=== PATIENT | male | born 1995 | race Caucasian/White ===

== ENCOUNTER 2018-04-26 16:25 | Emergency (ER) | payer OTHER ==
[~2018-04-26] VITALS: Ht 175.3 cm; Wt 66.2 kg
[2018-04-26 16:47] VITALS: Ht 175.3 cm; Wt 66.2 kg
[2018-04-26 18:43] VITALS: BP 138/71
== END 2018-04-26 18:43 | disposition home or self-care (01) ==
LOC: ED 16:25
DX: S06.0X0A Concussion without loss of consciousness, initial encounter (principal); V89.2XXA Person injured in unspecified motor-vehicle accident, traffic, initial encounter; Y93.I9 Activity, other involving external motion; Y92.413 State road as the place of occurrence of the external cause; Y99.8 Other external cause status